=== PATIENT | male | born 1985 | race Caucasian/White ===

== ENCOUNTER 2017-09-18 05:53 | Emergency (ER) | payer OTHER ==
[~2017-09-18] VITALS: Ht 180.3 cm; Wt 121.9 kg
[2017-09-18 05:57] VITALS: TEMP 36.7; Ht 180.3 cm; Wt 121.9 kg
[2017-09-18] MEDS ORDERED: PHENYLEPHRINE HCL INJ 10 MG in SYRINGE 19 ML ITC ONE (06:15)
--- NOTE | 2017-09-18 06:53 | EMERGENCY ROOM VISIT NOTE ---
ED Visit Note First contact with patient: 06:52 Patient was signed out to me at time of shift change at 0645 hrs. on September 18, 2017. This was pending Dr. Beth, urologist coming to evaluate patient. Patient has persistent erection consistent with that of priapism. He has a history of this. Dr. Beth was at bedside, and was able to successfully alleviate the priapism. Patient was observed for 15-20 minutes to ensure adequate blood pressure. He will be discharged home with follow-up with Dr. Beth. He is to return with recurrence or worsening. A VBG from the penis was performed per Dr. Beth's request. Patient was educated upon management, had questions answered prior to discharge, and was discharged home in good condition.
[2017-09-18 06:58] LABS: BASO % 0.7 %; EOS % 3.9 %; EOS ABS # 0.58 K/uL (0-0.5); HEMATOCRIT 45.6 % (42-52); HEMOGLOBIN 16.9 g/dL (14.0-18.0); IG# 0.03 K/uL (0.00-0.02); LYMPH % 21.7 %; LYMPH ABS # 3.27 K/uL (1.2-3.4); MEAN CELL VOLUME 84.6 fL (80-100); MEAN CORPUSCULAR HEMOGLOBIN 31.4 pg (25-34); MEAN CORPUSCULAR HGB CONC 37.1 g/dl (32-36); MEAN PLATELET VOLUME 9.9 fL (7.4-10.4); MONO % 14.7 %; MONO ABS # 2.21 K/uL (0.11-0.59); NEUT % 58.8 %; NEUT ABS # 8.86 K/uL (1.4-6.5); PLATELET COUNT 485 K/uL (130-400); RED CELL DISTRIBUTION WIDTH CV 13.7 % (11.5-14.5); RED CELL DISTRIBUTION WIDTH SD 42.4 fL (36.4-46.3); WHITE BLOOD COUNT 15.05 K/uL (4.8-10.8)
[2017-09-18] MEDS ORDERED: XYLOCAINE 1%/SOD BICARB 20 ML VIAL INFIL ONE (07:00)
--- NOTE | 2017-09-18 07:01 | EMERGENCY ROOM VISIT NOTE ---
History First contact with patient: 06:52 Chief Complaint: PENIS PAIN Stated Complaint: PENIS PAIN Nursing Triage Summary: has had an erection for >3hours,had a similar episode last week and [facility] History of Present Illness The patient is a 32 year old male who presents to the Emergency Room with complaints of erection symptoms that have been ongoing for the past 4 hours. The patient states that he awoke from sleep at 2 AM with interaction. The patient states that he has had one episode of this previously a few weeks ago. At that time he did go to [facility], where they "stuck a needle in it" . The patient reports that he followed up with a urologist down at [place], who told the patient to come to [place] if this occurred again as we have urology dispersion mixer. The patient does not take PDI 5 inhibitors. He does have a history of hereditary spherocytosis, which may or may not be contributory to his symptoms. He previously was on Seroquel, but discontinued this medication after the first episode. The patient has not had fever or chills. No injury or trauma. No drainage or discharge. He rates his discomfort an 8/10. Review of Systems More than 10 systems were reviewed and otherwise negative with the exception of history of present illness. Past Medical/Surgical History Hereditary spherocytosis, Priapism Family History No pertinent family history Social History Smoking Status: Current Every Day Smoker Current/Historical Medications No Active Prescriptions or Reported Meds Physical Exam Vital Signs Date Time Temp Pulse Resp B/P (MAP) Pulse Ox O2 Delivery O2 Flow Rate FiO2 09/18/17 08:35 76 20 141/80 97 09/18/17 07:25 84 143/76 100 Nasal Cannula 4.0 09/18/17 07:20 141/91 09/18/17 07:15 77 20 137/87 98 09/18/17 07:13 70 20 140/90 100 09/18/17 07:10 134/87 09/18/17 07:05 80 20 138/90 100 09/18/17 07:01 79 144/93 100 09/18/17 06:57 143/88 09/18/17 05:57 36.7 98 16 155/97 98 Room Air Physical Exam VITALS: Vitals are noted on the nurse's note and reviewed by myself. Vital signs stable. GENERAL: Well-developed, well-nourished, white male, who is mildly uncomfortable but cooperative. HEART: Regular rate and rhythm without murmurs gallops or rubs. LUNGS: Clear to auscultation bilaterally without wheezes, rales or rhonchi. No retractions or accessory muscle use. : Normal extending male genitalia without lesion or urethral drainage/ discharge. The phallus is erect. No gross discoloration or necrosis noted. No inguinal tenderness or testicular tenderness. ABDOMEN: Positive normal bowel sounds x 4. Soft, nontender, without masses or organomegaly. Medical Decision & Procedures Laboratory Results 09/18/17 06:45 Red Blood Count 5.39, Mean Corpuscular Volume 84.6, Mean Corpuscular Hemoglobin 31.4, Mean Corpuscular Hemoglobin Concent 37.1, Mean Platelet Volume 9.9, Neutrophils (%) (Auto) 58.8, Lymphocytes (%) (Auto) 21.7, Monocytes (%) (Auto) 14.7, Eosinophils (%) (Auto) 3.9, Basophils (%) (Auto) 0.7, Neutrophils # (Auto ) 8.86, Lymphocytes # (Auto) 3.27, Monocytes # (Auto) 2.21, Eosinophils # (Auto ) 0.58, Basophils # (Auto) 0.10 Test 09/18/17 06:45 09/18/17 07:25 White Blood Count 15.05 K/uL (4.8-10.8) Red Blood Count 5.39 M/uL (4.7-6.1) Hemoglobin 16.9 g/dL (14.0-18.0) Hematocrit 45.6 % (42-52) Mean Corpuscular Volume 84.6 fL (80-100) Mean Corpuscular Hemoglobin 31.4 pg (25-34) Mean Corpuscular Hemoglobin Concent 37.1 g/dl (32-36) Platelet Count 485 K/uL (130-400) Mean Platelet Volume 9.9 fL (7.4-10.4) Neutrophils (%) (Auto) 58.8 % Lymphocytes (%) (Auto) 21.7 % Monocytes (%) (Auto) 14.7 % Eosinophils (%) (Auto) 3.9 % Basophils (%) (Auto) 0.7 % Neutrophils # (Auto) 8.86 K/uL (1.4-6.5) Lymphocytes # (Auto) 3.27 K/uL (1.2-3.4) Monocytes # (Auto) 2.21 K/uL (0.11-0.59) Eosinophils # (Auto) 0.58 K/uL (0-0.5) Basophils # (Auto) 0.10 K/uL (0-0.2) RDW Standard Deviation 42.4 fL (36.4-46.3) RDW Coefficient of Variation 13.7 % (11.5-14.5) Immature Granulocyte % (Auto) 0.2 % Immature Granulocyte # (Auto) 0.03 K/uL (0.00-0.02) Bedside Hemoglobin 15.3 g/dl (14.0-18.0) Bedside Hematocrit 45 % (42-52) Bedside Blood Gas pH (LAB) 7.12 (7.35-7.45) Bedside Blood Gas pCO2 (LAB) 72 mmHg (35-46) Bedside Blood Gas pO2 (LAB) 36 mmHg (80-95) Bedside Blood Gas HCO3 (LAB) 24 meq/L (19-24) Bedside Blood Gas Total CO2 26 mEq/l (24-31) Bedside Blood Gas Base Excess (LAB) -6.0 meq/L (-9-1.8) Bedside Blood Gas O2 Saturation 48.0 % (90-95) Bedside Sodium 142 mEq/L (135-144) Bedside Potassium 3.0 mEq/L (3.3-5.0) ED Course Physical exam and history were performed. Nursing notes, EMR, and Medication List were personally reviewed. Patient appears to have priapism for the past 4+ hours. His exam is consistent with this. Evidently he has one previous episode. The patient was seen immediately upon his arrival to the department, and I immediately spoke with the on-call urologist, Dr. Beth. Dr. Beth indicated that he will be coming to the ER to evaluate the patient. He requested that we check a CBC and place the patient on oxygen. I did contact the pharmacy for the phenylephrine, and they will be sending it as soon as it is completed. A suture setup was completed as this is the likely easiest way to provide supplies for Dr. Beth. The patient remained in stable condition until the time of shift change. The case was discussed with Jay Salinas PA-C, who will assume care at this time. Please see Mr Salinas's dictation for further patient course, plan, and disposition. The chart was completed utilizing [employer] Voice Recognition Software. Grammatical errors, random word insertions, pronoun errors, and incomplete sentences are an occasional consequence of this system due to software limitations, ambient noise, and hardware issues. Any formal questions or concerns about the content, text, or information contained within the body of this dictation should be directly addressed to the provider for clarification. . Medical Decision Differential diagnosis includes, but is not limited to: Priapism, drug-induced, bleeding dyscrasia, and others Impression Primary Impression: Priapism Departure Information Prescriptions No Active Prescriptions or Reported Meds Referrals No Doctor, Assigned (PCP) Patient Instructions [facility]
[2017-09-18 07:38] LABS: ISTAT SODIUM 142 mEq/L (135-144)
[2017-09-18 08:35] VITALS: BP 141/80; PULSE 76; O2SAT 97
--- NOTE | 2017-09-18 13:20 | GENITOURINARY CONSULTATION ---
DATE OF CONSULTATION: 09/18/2017 EMERGENCY ROOM CONSULTATION REASON FOR THE CONSULT: Acute priapism. HISTORY OF PRESENTATION AND COURSE: The patient is a 32-year-old male who has began to have problems with priapism within the past several weeks has presented within the past several weeks to the Emergency Room in [place] where he was said that they irrigated his penis and the prep has been eventually went away. He was told they did do a blood gas. He did not find out for sure whether it was ischemic, but his symptoms on presentation appeared to be ischemic as there was no evidence of trauma. He saw an urologist in [place], presumably Dr. Rodriguez who told him to go to the Emergency Room within 3 hours if he had recurrent priapism. He woke up 5-6 hours ago with priapism and came through the Emergency Room here in [place] from [place] with erection. By the time I got here, the erection is certainly there but is not completely rigid, but it was clearly erect. He does have history of a hereditary spherocytosis. It is unclear whether this is in some way access if in a similar fashion to sickle cell in terms of causing sludging of his blood vessels. In any case, he also has a history of using Seroquel, but he has not used that since his first episode of priapism in presentation to the Emergency Room at [place]. He does have a history of smoking, does not drink. He denies any other medical problems. PHYSICAL EXAMINATION: GENERAL: The patient is an adult male, in moderate distress. HEENT: Unremarkable except for poor dentition. LUNGS: There is no respiratory distress. ABDOMEN: Soft, nontender. GENITOURINARY: He has normal uncircumcised male phallus that is erect. Testes are normal without mass. EXTREMITIES: Unremarkable. No pedal edema. NEUROLOGIC: He is alert and responsive. HOSPITAL COURSE: The patient's blood pressure was checked and he was started on 4 liters of oxygen, blood pressure was borderline of around 140/88; I told him to relax and was able to inject 1% lidocaine without epinephrine in the skin and then I put a 20-[place] butterfly needle into the penis on the left lateral aspect of the shaft of the penis proximal to the glans over where I injected lidocaine. I did withdraw about 5 mL of dark-colored blood consistent with ischemic priapism and a blood culture was ordered, to confirm this. In the interim, I did inject 0.2 mL of 500 mcg per mL of phenylephrine. This caused an immediate within a minute resolution of the priapism. I waited for 5 minutes leaving the butterfly in place and his priapism was completely gone. I removed the butterfly needle and held pressure for 3 minutes on this injection site. We checked the patient to make sure that the priapism had resolved. Instructed the patient to follow up in several weeks. If he continues to come to the Emergency Room, consideration will have to be given to alternative treatments for this. I suggest he consider quitting smoking and agreed to stay off Seroquel. The patient was not sexually active prior to this episode. I did discuss and reaffirmed that he needs to return if his erections lasting more than 3-4 hours to try to get prompt resolution of this.
== END 2017-09-18 08:38 | disposition home or self-care (01) ==
LOC: C.EDB 05:55 → C.EDA 08:38
DX: N48.30 Priapism, unspecified (principal); D58.0 Hereditary spherocytosis; F17.200 Nicotine dependence, unspecified, uncomplicated

== ENCOUNTER 2017-09-20 13:14 | Emergency (ER) | payer OTHER ==
[~2017-09-20] VITALS: Ht 180.3 cm; Wt 120.0 kg
[2017-09-20 13:20] VITALS: TEMP 36.2; Ht 180.3 cm; Wt 120.0 kg
[2017-09-20 14:15] VITALS: BP 145/88; PULSE 88; O2SAT 99
--- NOTE | 2017-09-20 20:33 | EMERGENCY ROOM VISIT NOTE ---
History First contact with patient: 13:35 Chief Complaint: PENIS PAIN Stated Complaint: PENIS PAIN Nursing Triage Summary: Priapism for the past 8 hrs. was here tuesday for the same symptoms History of Present Illness The patient is a 32 year old male who presents to the Emergency Room with complaints of a continuous erection for the past 8 hours. The patient reports that he was here over the weekend with similar symptoms, and was seen by Dr. Beth, a urologist. The patient reports that he had blood drain from the penis , and had another medication injected into the penis that stop the erection. The patient reports that he is scheduled to see Dr. Beth next week. The patient reports that he developed another erection yesterday morning. After approximately 3.5 hours, the patient got into his vehicle and was driving here when the erection subsided. He turned around and went home. The patient reports that he had sex with his last night between approximately 9 and 10 PM. He reports that his erection normally subsided. The patient was awakened this morning between 4:30 and 5 AM with another erection that did not resolve, and elected to come to the emergency department again for further evaluation. Patient reports increasing pain, rating his discomfort a 9 out of 10. Review of Systems 10 system review was performed and was negative except for pertinent positives and negatives as indicated in history of present illness Past Medical/Surgical History Medical Problems: (1) Hereditary spherocytosis (2) Priapism Surgical Problems: (1) History of splenectomy Family History No significant family history Social History Smoking Status: Current Every Day Smoker Smokeless Tobacco Use: No Alcohol Use: none Marital Status: Housing Status: lives with family Occupation Status: employed Current/Historical Medications No Active Prescriptions or Reported Meds Physical Exam Vital Signs Date Time Temp Pulse Resp B/P (MAP) Pulse Ox O2 Delivery O2 Flow Rate FiO2 09/20/17 14:15 88 20 145/88 99 09/20/17 13:20 36.2 82 18 149/83 98 Room Air Physical Exam CONSTITUTIONAL: Healthy and well nourished. Alert and oriented X 3 with positive affect. Patient appears in moderate discomfort from pain. HEENT: Normocephalic, atraumatic. Pupils equal, round and reactive. NECK: Full active range of motion without discomfort. RESPIRATORY: Clear to auscultation bilaterally with no wheezing, crackles, rhonchi or stridor. CARDIOVASCULAR: Regular rate and rhythm with no murmurs, rubs or gallops. GASTROINTESTINAL: Bowel sounds present in all quadrants. Abdomen is soft and nontender to palpation. GENITOURINARY: The patient has a full erection. No ecchymosis or overriding erythema noted. No penile lesions noted. No tenderness to palpation of the testicles, and no thickening/erythema of the scrotum. There is no bloody drainage from the meatus. MUSCULOSKELETAL: Full range of motion of all joints without discomfort. INTEGUMENTARY: No rash or other significant dermatologic conditions noted. NEUROLOGIC: No focal neurologic deficits noted. Medical Decision & Procedures ED Course Patient history and physical exam were performed. Nurse's notes were reviewed. Vital signs were reviewed, showing a mild elevation of 149/83. The patient refused any analgesics. I did review prior documentation from the patient's visit over the weekend. Patient required drainage and phenylephrine injections. I called and spoke with JANIE Calle who discussed the case further with Dr. Cazares, urologist who is in the office right now. Dr. Cazares requested that the patient go directly to his office for further treatment. Patient was provided address and contact information. He was instructed to go directly to his office. He refused any analgesics prior to discharge, rating his discomfort an 8 out of 10. Medical Decision Medication Reconcilliation Current Medication List: was personally reviewed by me Blood Pressure Screening Patient's blood pressure: Elevated blood pressure Blood pressure disposition: Elevated BP felt to be situational Impression Primary Impression: Ischemic priapism Departure Information Dispostion Home / Self-Care Condition GOOD Prescriptions No Active Prescriptions or Reported Meds Referrals Kaveh Cazares MD Forms HOME CARE DOCUMENTATION FORM, IMPORTANT VISIT INFORMATION Patient Instructions My [facility] Additional Instructions Go directly to Dr. Cazares's office for further treatment.
== END 2017-09-20 14:16 | disposition home or self-care (01) ==
LOC: C.EDB 13:16 → C.EDD 14:16
DX: N48.30 Priapism, unspecified (principal); F17.200 Nicotine dependence, unspecified, uncomplicated

== ENCOUNTER 2017-10-09 08:49 | Emergency (ER) | payer OTHER ==
[~2017-10-09] VITALS: Ht 180.3 cm; Wt 122.5 kg
[2017-10-09 08:57] VITALS: TEMP 36.5; Ht 180.3 cm; Wt 122.5 kg
[2017-10-09] MEDS ORDERED: ASPI81TA28 PO (09:29)
[2017-10-09] MEDS ORDERED: PROMETHAZINE HCL INJ 25 MG/ML 1 ML VIAL IM STA (09:49)
[2017-10-09] MEDS ORDERED: KETOROLAC TROMETHAMINE 60 MG/2 ML VIAL IM STA (09:49)
[2017-10-09] MEDS ORDERED: DiphenhydrAMINE HCL 50 MG/ML VIAL IM ONE (10:00)
[2017-10-09 10:31] VITALS: BP 141/92; PULSE 82; O2SAT 97
--- NOTE | 2017-10-09 16:36 | EMERGENCY ROOM VISIT NOTE ---
ED Visit Note First contact with patient: 09:27 CHIEF COMPLAINT: Migraine headache HISTORY OF PRESENT ILLNESS: This 32-year-old white male complains of onset of a severe generalized headache that started this morning. He has a history of priapism. He states he awoke this morning and had an erection. It would not go down. He was in severe pain and this caused him to vomit. He states that started his migraine headache. On his ride here, he states the priapism resolved. He no longer has pain there. He denies any need for treatment for that. The patient denies fever or chills recently, and denies any other cold symptoms. There is no weakness or numbness of the extremities. There is no difficulty with speech, hearing, or vision. No trauma to the head and no neck pain. The pain is severe, constant, and has been slowly increasing in severity. He is photophobic and phonophobic. This is not the worst headache of his life and is similar to previous migraines. Pain is 8/10. He states he is usually seen at [facility] for his headaches and he is given a "migraine cocktail." REVIEW OF SYSTEMS: Ears: No pain or change in hearing. Neck: No pain, stiffness, or swelling. Neurological: No changes in mental status, vertigo, focal weakness, numbness. Cardiac: No chest pain, diaphoresis, dyspnea on exertion, orthopnea, pedal edema, or palpitations. Respiratory: No cough, change in sputum, wheezes, hemoptysis, shortness of breath, or stridor. Gastrointestinal: No abdominal pain, blood in stools, diarrhea, or loss of appetite. Skin: No rash, new lesions, or masses. General: No fever or chills , fatigue, loss of appetite, or significant recent weight gain or loss. PMH: Supplemental sheet was reviewed and signed. Previous surgeries: None Medical history: History of priapism and migraines Family history: Noncontributory. SOCIAL HISTORY: . Employed. No tobacco use. Allergies: NKDA Current Medications: Aspirin PHYSICAL EXAM: Vital Signs: Afebrile. Reviewed and found in patient's chart. Mildly hypertensive. This is likely situational. MENTAL STATUS: Alert, oriented, and coherent. In obvious discomfort from the headache. No acute distress. Skin:Warm and dry with good turgor. No rashes or lesions. No ecchymosis or erythema. The patient is not diaphoretic. No abrasions. HEENT :Normocephalic atraumatic. Eyes PERRLA, EOMI. No conjunctiva or scleral injection. He is light sensitive. Ears TMs intact bilaterally with good light reflexes. No erythema or bulging. No hemotympanum. Canals are patent. Nares patent bilaterally without turbinate enlargement. No significant drainage. Oropharynx without erythema or exudate. Uvula midline, oral mucosa moist. No lesions present. Lymphatics are palpated without anterior or posterior chain enlargement or tenderness. NECK: Supple, nontender, no nuchal rigidity. HEART : Regular rhythm and normal rate without murmurs, ectopy, gallops, or rubs. Peripheral pulses are 2+. LUNGS: Lungs are clear to auscultation. No crackles rhonchi or wheezing. Good air movement. The patient is able to take a deep breath. Abdomen: Obese. Bowel sounds present x4. Soft, nontender to palpation. No organomegaly. No masses noted. NEUROLOGIC: The patient moves all extremities well and the gait is normal. Cranial nerves 2 through 12 are intact. Gross sensation is intact across the upper and lower extremities via soft touch. EMERGENCY DEPARTMENT COURSE: The patient was educated regarding today's findings. Conservative care measures were discussed. The patient was given Benadryl 25 mg IM, Toradol 60 mg IM, and Phenergan 25 mg IM for the headache with some relief of the pain and nausea. I do not suspect intracranial bleed, encephalitis, or meningitis. DIAGNOSIS: Migraine headache DISCHARGE INSTRUCTIONS & TREATMENT: Patient was given Toradol, Benadryl, and Phenergan for nausea and pain control. Rest at home in a quiet, dark room. Driving precautions were reviewed. Take Tylenol and Motrin for any breakthrough pain. See your own doctor in follow-up. Maintain hydration. Return to the ER for any acute changes in mental status. Migraine headache handout was provided. Current/Historical Medications Scheduled Aspirin (Aspirin Ec), 81 MG PO DAILY Allergies Coded Allergies: No Known Allergies (Unverified , 10/09/17) Vital Signs Date Time Temp Pulse Resp B/P (MAP) Pulse Ox O2 Delivery O2 Flow Rate FiO2 10/09/17 10:31 82 17 141/92 97 10/09/17 08:57 36.5 79 17 132/90 97 Room Air Medications Administered Medications (Trade) Dose Ordered Sig/Nette Route Start Time Stop Time Status Last Admin Dose Admin Promethazine HCl (Phenergan Inj) 25 mg NOW STAT IM 10/09/17 09:49 10/09/17 09:54 DC 10/09/17 10:09 25 MG Ketorolac Tromethamine (Toradol Inj) 60 mg NOW STAT IM 10/09/17 09:49 10/09/17 09:54 DC 10/09/17 10:10 60 MG Diphenhydramine HCl (Benadryl Inj) 25 mg ONE ONCE IM 10/09/17 10:00 10/09/17 10:01 DC 10/09/17 10:10 25 MG Departure Information Impression Primary Impression: Migraine Dispostion Home / Self-Care Condition GOOD Forms HOME CARE DOCUMENTATION FORM, MOTRIN USE, TYLENOL USE, Work Instructions, Return To Work: 1 day Specific Date: 10/09/17 IMPORTANT VISIT INFORMATION Patient Instructions Headache Migraine Triggers Prevent, My [facility] Additional Instructions Maintain hydration Rest in a quiet dark room Sunglasses may help minimize your symptoms Follow up with your PCP as needed Return to the ED for any other concerns Avoid any known triggers Work Instructions Return To Work: 1 day Specific Date: 10/09/17
== END 2017-10-09 10:32 | disposition home or self-care (01) ==
LOC: C.EDB 08:50
DX: G43.909 Migraine, unspecified, not intractable, without status migrainosus (principal)

== ENCOUNTER 2017-10-10 09:17 | Emergency (ER) | payer OTHER ==
[~2017-10-10] VITALS: Ht 180.3 cm; Wt 123.0 kg
[~2017-10-10 09:17] MED LIST: ASPI81TA28 PO
[2017-10-10 09:23] VITALS: TEMP 36.7; Ht 180.3 cm; Wt 123.0 kg
[2017-10-10] MEDS ORDERED: PHENYLEPHRINE HCL INJ 10 MG in SYRINGE 19 ML ITC ONE (10:00)
--- NOTE | 2017-10-10 10:46 | EMERGENCY ROOM VISIT NOTE ---
History Report prepared by Aleisha: Uri Holcomb Under the Supervision of: Dr. Jatin Saini M.D. First contact with patient: 09:35 Chief Complaint: PENIS PAIN Stated Complaint: PENIS PAIN Nursing Triage Summary: Pt states, "it's like I am taking viagara, but I'm not." Pt states currently has an erection since 0200. Has been seen here recently for the same, sent to urology. Pt states did not call urology, was told last time he was there that if this happened again he was to come to the ED. History of Present Illness The patient is a 32 year old white male with a past medical history of spherocytosis, priapism, and splenectomy, who presents to the Emergency Room with complaints of a constant erection that began at 0200, 8 hours ago. The patient states that he has had this issue several times in the past. His significant other at bedside notes that this has happened numerous times before and he has had procedures done by a urologist. The last procedure to remedy this situation was done 2 weeks ago. The patient denies any history of hypertension or drug use. He denies any shortness of breath or chest pain. The patient was seen on the of last month by Dr. Beth for a priapism. Source of History: patient, spouse/significant other Onset: 8 hours GRAIN DRIER Position: other (Genitourinary) Quality: other (Erection) Timing: constant Associated Symptoms: No chest pain, No SOB Review of Systems See HPI for pertinent positives and negatives. A total of ten systems were reviewed and were otherwise negative. Past Medical & Surgical Medical Problems: (1) Hereditary spherocytosis (2) Priapism Surgical Problems: (1) History of splenectomy Family History No significant family history Social History Smoking Status: Current Every Day Smoker Current/Historical Medications No Active Prescriptions or Reported Meds Allergies Coded Allergies: No Known Allergies (Unverified , 10/09/17) Physical Exam Vital Signs Date Time Temp Pulse Resp B/P (MAP) Pulse Ox O2 Delivery O2 Flow Rate FiO2 10/10/17 11:05 80 18 143/91 98 10/10/17 09:23 36.7 77 18 150/104 98 Room Air Physical Exam GENERAL: Awake, alert, well-appearing, NAD HENT: Normocephalic, atraumatic. EYES: Normal conjunctiva. Sclera non-icteric. NECK: Supple. No nuchal rigidity. FROM. RESPIRATORY: CTAB, no rhonchi, wheezing, crackles CARDIAC: RRR, no MRG ABDOMEN: Soft, NTND, BS+ MSK: No chest wall TTP, no LE edema NEURO: GCS 15, CN 2-12 intact, moves all 4s on command SKIN: No rash or jaundice noted. : Partially tumesced penis. Mild penile pain. No scrotal pain or swelling. Medical Decision & Procedures ED Course 0946: The patient was evaluated in room A8. A complete history and physical exam was performed. 1028: The patients penis has detumesced at this time. I will consult urology. I do not need to perform any procedure. 1042: I discussed the case with Yennifer Barton - Urology. She will set up a visit in the office as an outpatient. 1048: I reevaluated the patient. Discussed results and discharge instructions: He verbalized understanding and agreement. The patient is ready for discharge. Medical Decision The patient is a 32 year old white male with a past medical history of spherocytosis, priapism, and splenectomy, who presents to the Emergency Room with complaints of a constant erection that began at 0200, 8 hours ago. Differential Diagnosis includes; heme disorder, ischemic priapism, high flow priapism, medication side effect, drug abuse. Patient was seen and evaluated the bedside. Patient does have a history of priapism. Patient was seen last month where he did have phenylephrine injection and that was diagnosed with an ischemic stuttering priapism. Patient had been taking antipsychotic which she no longer takes. Patient does have a history of spherocytosis which I am unsure as to whether or not this may cause any issues with priapism as other hematologic disorders may cause it. Patient has complained of some mild pain but denies any other symptoms. Patient did have phenylephrine ordered. Upon reassessment the patient the patient had completely detumesced. I did speak with the on-call urologist who stated that they would obtain a follow-up appointment for the patient. Patient was told return if he had any worsening symptoms. Patient was given strict follow-up, discharge, and return precautions. All questions were answered. Patient was deemed suitable for outpatient follow-up at this time. Patient agreed with the plan of care and was safely discharged home. Medication Reconcilliation Current Medication List: was personally reviewed by me Blood Pressure Screening Patient's blood pressure: Elevated blood pressure Blood pressure disposition: Elevated BP felt to be situational Consults Time Called: 1039 Consulting Physician: Yennifer Barton - Urology Returned Call: 1042 I discussed the case with Yennifer Barton - Urologjeremias. She will set up a visit in the office as an outpatient. Impression Primary Impression: Priapism Additional Impressions: Hereditary spherocytosis Encounter for smoking cessation counseling Scribe Attestation The scribe's documentation has been prepared under my direction and personally reviewed by me in its entirety. I confirm that the note above accurately reflects all work, treatment, procedures, and medical decision making performed by me. Departure Information Dispostion Home / Self-Care Prescriptions No Active Prescriptions or Reported Meds Referrals No Doctor, Assigned (PCP) Yennifer Barton CRNP Patient Instructions ED Priapism, ED Smoking Cessation, [facility] Additional Instructions Please return to the emergency department if you have worsening or recurrent symptoms not amenable to at-home treatment. Please call for a follow-up appointment with her primary care physician. Please take your medications as prescribed. If you have other concerns and/or complaints please feel free to also call your primary care physician's office or return the ED for further evaluation, management, and treatment. Take your medications as prescribed. Follow-up with the urologist as recommended and scheduled. You have been examined and treated today on an emergency basis only. This is not a substitute for, or an effort to provide, complete comprehensive medical care. It is impossible to recognize and treat all injuries or illnesses in a single emergency department visit. It is therefore important that you follow up closely with [facility], your PCP, and/or your specialist(s). Call as soon as possible for an appointment. Thank you for your time and consideration. I look forward to speaking with you again soon. Please don't hesitate to call us if you have any questions. Problem Qualifiers
[2017-10-10 11:05] VITALS: BP 143/91; PULSE 80; O2SAT 98
== END 2017-10-10 11:09 | disposition home or self-care (01) ==
LOC: C.EDB 09:18 → C.EDA 11:09
DX: N48.30 Priapism, unspecified (principal); F17.210 Nicotine dependence, cigarettes, uncomplicated; D58.0 Hereditary spherocytosis; Z71.6 Tobacco abuse counseling

== ENCOUNTER 2017-10-13 12:14 | Emergency (ER) | payer OTHER ==
[~2017-10-13] VITALS: Ht 180.3 cm; Wt 122.7 kg
[2017-10-13 12:16] VITALS: TEMP 36.6; Ht 180.3 cm; Wt 122.7 kg
[2017-10-13] MEDS ORDERED: MoRPHine SULFATE 4 MG/ML 1 ML CARP\\VIAL IV STA (12:27)
--- NOTE | 2017-10-13 12:35 | EMERGENCY ROOM VISIT NOTE ---
History Report prepared by Alesiha: Horace Infante Under the Supervision of: Dr. Jsaper Boyd M.D. First contact with patient: 12:20 Chief Complaint: PENIS PAIN Stated Complaint: PENIS PAIN History of Present Illness The patient is a 32 year old male with a history of priapism who presents to the Emergency Room with complaints of resolving penile erection that started around 5 and a half hours ago. He states that when he woke up around 0700, he had an erection. The patient says that he called his urologist office, and was told to come here for evaluation and treatment. He notes that he was put on 20 mg of Viagra by his urologist 2 days ago to see if it would counteract the erection. The patient states that he started the Viagra 2 days ago, and he did not have any episodes that day or yesterday. He adds that that he tried to have intercourse with his earlier, but it did not make his erection go down. The patient notes that on the way here, his erection started to go down a bit. He does live an hour away. He notes that his penis still hurts however. The patient states that he took Afrin and Sudafed first thing this morning as advised by his urologist. The patient denies any testicle pain or penile discharge. He adds that when he saw his urologist 2 days ago, his blood pressure was noted to be high (around 144 systolic). Source of History: patient Onset: 5 and a half hours ago Position: other (penis) Symptom Intensity: hx of priapism Quality: other (erection) Timing: other (resolving) Note: Associated symptoms: Penis pain. Denies testicular pain or penile discharge. Review of Systems See HPI for pertinent positives and negatives. A total of ten systems were reviewed and were otherwise negative. Past Medical & Surgical Medical Problems: (1) Hereditary spherocytosis (2) Priapism Surgical Problems: (1) History of splenectomy Family History No significant family history Social History Smoking Status: Never Smoker Marital Status: Housing Status: lives with family Occupation Status: employed Current/Historical Medications Scheduled Sildenafil Citrate (Viagra), 25 MG PO PRN Allergies Coded Allergies: No Known Allergies (Unverified , 10/09/17) Physical Exam Vital Signs Date Time Temp Pulse Resp B/P (MAP) Pulse Ox O2 Delivery O2 Flow Rate FiO2 10/13/17 13:50 89 19 127/84 100 10/13/17 12:48 78 16 150/84 98 Room Air 10/13/17 12:16 36.6 98 18 133/85 97 Room Air Physical Exam Physical Exam GENERAL: He is oriented to person, place, and time. He appears well-developed and well-nourished. He does not appear distressed. ____ HENT: Exam performed. Head: Normocephalic and atraumatic. Right Ear: External ear normal. No mastoid tenderness. Left Ear: External ear normal. No mastoid tenderness. Mouth/Throat: The oropharynx is clear and moist. No trismus in the jaw. No dental abscesses or uvula swelling. No oropharyngeal exudate or tonsillar abscesses. ____ EYES: Conjunctivae and EOM are normal. Pupils are equal, round, and reactive to light. Right eye exhibits no discharge. Left eye exhibits no discharge. No scleral icterus. ____ NECK: Normal range of motion. Neck supple. No JVD present. No spinous process tenderness present. No carotid bruit present. No rigidity. No tracheal deviation and normal range of motion present. No Brudzinski's sign and no Kernig 's sign noted. ____ CV: Normal rate, regular rhythm, normal heart sounds and intact distal pulses. There is no peripheral edema. Palpable radial pulses bue. ____ PULM/CHEST: Effort normal and breath sounds normal. No respiratory distress. No stridor. He has no wheezes. He has no rales. Chest Wall: He exhibits no tenderness. ____ ABD: The abdomen is soft. Bowel sounds are normal. He has no distension. No mass is present. There is no tenderness. There is no rebound, no guarding, no Chávez's sign and no tenderness at McBurney's point. Rovsig negative : No pain on palpation of the testicles or epididymis. Semi-erect penis. MUSC/SKEL: Normal range of motion. There is no peripheral edema, tenderness or deformity. LYMPH: No cervical adenopathy. ____ NEURO: Alonzo is alert and oriented to person, place, and time. He has normal strength. No cranial nerve deficit or sensory deficit. Coordination and gait normal. GCS eye subscore is 4. GCS verbal subscore is 5. GCS motor subscore is 6. Cerebellar tests wnl. ____ SKIN: Skin is warm and dry. He is not diaphoretic. ____ Medical Decision & Procedures Medications Administered Medications (Trade) Dose Ordered Sig/Nette Route Start Time Stop Time Status Last Admin Dose Admin Morphine Sulfate (MoRPHine SULFATE INJ) 4 mg NOW STAT IV 10/13/17 12:27 10/13/17 12:29 DC 10/13/17 12:54 4 MG ED Course 1225: The patient was evaluated in room B11B. A complete history and physical exam was performed. EMR reviewed. Patient has multiple visits for priapism. 1227: Morphine Sulfate Inj 4 mg IV. 1327: Vital signs stable. Patient no longer has priapism/erection. Penis is tumulesce. I discussed the patient with Yennifer [facility] urology - she says that the patient can go home, and she will call the patient to schedule a follow-up. I revaluated the patient and his vitals are stable and he is reporting no pain. DISCHARGE - Plan of care discussed with patient and questions answered. His priapism has resolved. I discussed the patient with Yennifer Barton of urology who states that she will call the patient to schedule a follow-up. The patient was given both verbal and printed discharge instructions. The patient verbalized understanding and ability to comply. The patient is to seek outpatient follow up as noted in the discharge instructions. The patient verbalized understanding and ability to comply. The patient is discharged in stable condition. The patient was instructed to return for worsening symptoms. Medical Decision Vital signs stable. Patient no longer has priapism/erection. Penis is tumulesce. I discussed the patient with Yennifer [facility] urology - she says that the patient can go home, and she will call the patient to schedule a follow-up. I revaluated the patient and his vitals are stable and he is reporting no pain. DISCHARGE - Plan of care discussed with patient and questions answered. His priapism has resolved. I discussed the patient with Yennifer Barton of urology who states that she will call the patient to schedule a follow-up. The patient was given both verbal and printed discharge instructions. The patient verbalized understanding and ability to comply. The patient is to seek outpatient follow up as noted in the discharge instructions. The patient verbalized understanding and ability to comply. The patient is discharged in stable condition. The patient was instructed to return for worsening symptoms. Medication Reconcilliation Current Medication List: was personally reviewed by me Blood Pressure Screening Patient's blood pressure: Elevated blood pressure Blood pressure disposition: Elevated BP felt to be situational Consults Time Called: 1320 Consulting Physician[facility] Returned Call: 1324 I discussed the patient with [facility] - she says that the patient can go home, and she will call the patient to schedule a follow-up. Impression Primary Impression: Paolo Moraes Attestation The scribe's documentation has been prepared under my direction and personally reviewed by me in its entirety. I confirm that the note above accurately reflects all work, treatment, procedures, and medical decision making performed by me. The chart was completed utilizing [employer] voice recognition software. Grammatical errors, random word insertions, pronoun errors, and incomplete sentences are an occasional consequence of this system due to software limitations, ambient noise, and hardware issues. Any formal questions or concerns about the content, text, or information contained within the body of this dictation should be directly addressed to the physician for clarification. Departure Information Dispostion Home / Self-Care Referrals No Doctor, Assigned (PCP) Ike Beth M.D. Forms HOME CARE DOCUMENTATION FORM, IMPORTANT VISIT INFORMATION, WORK / SCHOOL INSTRUCTIONS Patient Instructions Vicenta Palacios [facility]
[2017-10-13] MEDS ORDERED: SILD1TAB11 PO (13:08)
[2017-10-13 13:50] VITALS: BP 127/84; PULSE 89; O2SAT 100
== END 2017-10-13 13:58 | disposition home or self-care (01) ==
LOC: C.EDB 12:16
DX: N48.30 Priapism, unspecified (principal); D58.0 Hereditary spherocytosis; Z87.438 Personal history of other diseases of male genital organs

== ENCOUNTER 2018-02-26 17:10 | Emergency (ER) | payer OTHER ==
[~2018-02-26] VITALS: Ht 182.9 cm; Wt 124.7 kg
[~2018-02-26 17:10] MED LIST changes: -ASPI81TA28 PO; +SILD1TAB11 PO
[2018-02-26 17:12] VITALS: Ht 182.9 cm; Wt 124.7 kg
[2018-02-26] MEDS ORDERED: LIDODERM (LIDOCAINE) PATCH 5% TD STA (17:34)
[2018-02-26] MEDS ORDERED: NAPROXEN 250 MG TAB PO STA (17:34)
--- NOTE | 2018-02-26 18:02 | DIAGNOSTIC IMAGING REPORT ---
L SHOULDER MIN 2 VIEWS ROUTINE HISTORY: 32 years-old Male left shoulder pain acute left shoulder pain COMPARISON: None available TECHNIQUE: 3 views of the left shoulder FINDINGS: No acute fracture, dislocation or significant degenerative changes. The imaged lung villasenor appear clear. IMPRESSION: No acute fracture or dislocation. The above report was generated using voice recognition software. It may contain grammatical, syntax or spelling errors. Electronically signed by: Ray Jefferson M.D. 02/26/2018 6:00 PM Dictated Date/Time: 02/26/2018 6:00 PM
--- NOTE | 2018-02-26 18:10 | EMERGENCY ROOM VISIT NOTE ---
ED Visit Note First contact with patient: 17:27 CHIEF COMPLAINT: Left shoulder pain HISTORY OF PRESENT ILLNESS: This 32-year-old male patient presents to the emergency department, ambulatory, complaining of pain in the left shoulder 1 week. The patient states he was seen in the emergency department at [facility] last Tuesday when he was told to follow-up with orthopedics. He states there were no imaging performed. There is mild limitation of motion of the arm because of the pain. The pain is moderate, constant and increases with motion of the hand and arm. The patient states the pain is sharp and 7/10. The patient has taken intermittent ibuprofen and Tylenol without relief of the pain. No previous significant previous shoulder disease or injury. No numbness or tingling. No neck or back pain. No chest pain or shortness of breath. No abdominal pain or nausea/vomiting. No cough. REVIEW OF SYSTEMS: A 6 system review of systems was performed with positives and pertinent negatives in the HPI. ALLERGIES: None MEDICATIONS: None PMH: Hereditary spherocytosis SOCIAL HISTORY: The patient lives locally with family. He denies drug, alcohol use. He admits to smoking cigarettes. PHYSICAL EXAM: Vital Signs: Reviewed nurse's notes, vital signs stable. GENERAL : This is a 32-year-old white male, in no acute distress, but appears to be in pain, well-developed, well-nourished. MUSCULOSKELETAL: There is no deformity in the contour of the left shoulder and there are no rahul deformities noted. There is no sulcus sign. There is tenderness over the entire shoulder joint. The patient's active range of motion is limited due to pain. PROM full. Supraspinatus strength 5/5. There is no clavicle tenderness. No tenderness of the humerus, elbow, wrist, or hand. Loss Prevention Officer strength 5/5. Radial pulse 2+. NECK: No tenderness to palpation over the cervical spine. Supple. No lymphadenopathy. HEART: Regular rate and rhythm without murmurs gallops or rubs. LUNGS: Clear to auscultation bilaterally without wheezes, rales or rhonchi. No accessory muscle use. No retractions. NEURO: The patient is alert and oriented to person, place, and time. Normal sensation to light and sharp touch. Capillary refill less than 2 seconds. RADIOLOGY: L SHOULDER MIN 2 VIEWS ROUTINE HISTORY: 32 years-old Male left shoulder pain acute left shoulder pain COMPARISON: None available TECHNIQUE: 3 views of the left shoulder FINDINGS: No acute fracture, dislocation or significant degenerative changes. The imaged lung villasenor appear clear. IMPRESSION: No acute fracture or dislocation. The above report was generated using voice recognition software. It may contain grammatical, syntax or spelling errors. Electronically signed by: Ray Jefferson M.D. 02/26/2018 6:00 PM Dictated Date/Time: 02/26/2018 6:00 PM EMERGENCY DEPARTMENT COURSE: I examined the patient. The patient was given Naprosyn and Lidoderm patch for pain. An X-ray of the left shoulder was reviewed by myself and radiology and shows no acute fracture or dislocation. The patient was reassessed. I discussed the findings with the patient at bedside. He will be treated with scheduled antiinflammatories and Tylenol for pain. He was given an arm sling for comfort. He is to follow-up with the PCP on Tuesday for referral to orthopedics as soon as possible. He was provided with a work note for lifting limitations with the left upper extremity. Discharge instructions reviewed. The patient's questions were answered to his satisfaction. The patient was discharged home in good condition. I attest that I have personally reviewed the patient's current medication list. Patient was found to have normal blood pressure on screening and does not require follow-up. Etiologies such as soft tissue injury, fracture, dislocation, neurovascular compromise, compartment syndrome, as well as others were entertained. DIAGNOSIS: Left Shoulder pain The chart was completed utilizing [employer] voice recognition software. Grammatical errors, random word insertions, pronoun errors, and incomplete sentences are an occasional consequence of this system due to software limitations, ambient noise, and hardware issues. Any formal questions or concerns about the content, text, or information contained within the body of this dictation should be directly addressed to the provider for clarification. (Eliana Lucas, STACEY) First contact with patient: 17:27 (Mauricio Perea M.D.) Current/Historical Medications Scheduled Naproxen (Naprosyn), 500 MG PO BID Allergies Coded Allergies: No Known Allergies (Unverified , 02/26/18) Vital Signs Date Time Temp Pulse Resp B/P (MAP) Pulse Ox O2 Delivery O2 Flow Rate FiO2 02/26/18 18:24 36.6 88 24 145/88 97 02/26/18 17:12 36.6 87 20 150/83 97 Room Air (Mauricio Perea M.D.) Medications Administered Medications (Trade) Dose Ordered Sig/Nette Route Start Time Stop Time Status Last Admin Dose Admin Naproxen (Naprosyn Tab) 500 mg NOW STAT PO 02/26/18 17:34 02/26/18 17:35 DC 02/26/18 17:34 500 MG Lidocaine (Lidoderm Patch 5%) 1 patch NOW STAT TD 02/26/18 17:34 02/26/18 17:35 DC 02/26/18 17:34 1 PATCH (Mauricio Perea M.D.) Departure Information Impression Primary Impression: Left shoulder pain Dispostion Home / Self-Care Condition GOOD Prescriptions Naproxen (Naprosyn) 500 Mg Tab 500 MG PO BID, #60 TAB Prov: Eliana Lucas PA-C 02/26/18 Referrals Alfreda Sheriff PA (PCP) [facility] Patient Instructions ED Shoulder [place] [facility] [place] [facility] Additional Instructions You have been treated in the Emergency Department for Shoulder Pain. For pain control, you can use the following [id number] medicines (if >12 yo): Naproxen may be used for fever or pain. Use 500mg every twelve hours as needed. Take with food. Avoid using more than 1000mg in a 24 hour period. Do not use 1000mg per day for more than three consecutive days without physician direction. Prolonged inappropriate use can lead to stomach upset or ulcers. No other NSAIDs including ibuprofen, Advil, Motrin, Aleve, naproxen, Naprosyn while taking this medication. (AND/OR) Acetaminophen(Tylenol) may be used for fever or pain. Use 1000mg every six hours as needed. Avoid using more than 3000mg in a 24 hour period. If this is a recent injury (<24 hrs), ice can be applied to the area of pain for the first 3 days to help decrease pain and inflammation. You have been provided the number for an Orthopaedic Surgeon. You should call this number as soon as possible to establish a follow-up visit from today's Emergency Department visit. Use the shoulder sling in place until evaluated by Orthopedics. You should remove the sling 3-4 times per day to move the joints/extremity to keep them loose. Activity as tolerated. Return to the Emergency Department if your current symptoms worsen despite treatment course outlined above, or if you develop any of the following symptoms : intractable pain despite aforementioned treatment course or new onset of numbness or tingling of the arm. Problem Qualifiers Primary Impression: Left shoulder pain Chronicity: acute Qualified Codes: M25.512 - Pain in left shoulder
[2018-02-26] MEDS ORDERED: NAPR-22 PO (18:13)
[2018-02-26 18:24] VITALS: BP 145/88; PULSE 88; TEMP 36.6; O2SAT 97
== END 2018-02-26 18:25 | disposition home or self-care (01) ==
LOC: C.EDA 17:11 → C.EDD 18:25
DX: M25.512 Pain in left shoulder (principal); D58.0 Hereditary spherocytosis; F17.210 Nicotine dependence, cigarettes, uncomplicated